=== PATIENT | male | born 1985 | race Two or more races ===

== ENCOUNTER 2021-12-24 22:42 | Emergency (ER) | payer OTHER ==
[~2021-12-24] VITALS: Ht 185.4 cm; Wt 99.8 kg
[2021-12-24] MEDS ORDERED: SERTRALINE20 MG/1 ML PO (23:12)
== END 2021-12-25 | disposition left against medical advice (07) ==
LOC: ER 22:42
DX: Z53.21 Procedure and treatment not carried out due to patient leaving prior to being seen by health care provider (principal)